=== PATIENT | female | born 1950 | race Caucasian/White ===

== ENCOUNTER → 2016-06-15 | Outpatient (CLI) | payer MEDICARE, OTHER | END | disposition home or self-care (01) | LOC: CFH 13:44 | PROVIDERS: ATTEND Family Medicine | DX: R10.9 Unspecified abdominal pain (principal); Z90.49 Acquired absence of other specified parts of digestive tract; Z90.710 Acquired absence of both cervix and uterus | CPT/HCPCS: 74176 ==

== ENCOUNTER → 2017-06-10 | Outpatient (CLI) | payer MEDICARE ==
[~2017-06-10] MED LIST: GADOBUTROL 7.5 MMOL/7.5 ML PFS ONE
== END | disposition home or self-care (01) ==
LOC: CFH 13:53
PROVIDERS: ATTEND Ophthalmology
DX: H49.22 Sixth [abducent] nerve palsy, left eye (principal); H53.2 Diplopia
CPT/HCPCS: 36415; 70543; 70553; 82565; 84520; A9585

== ENCOUNTER → 2017-06-23 | Outpatient (CLI) | payer MEDICARE ==
[~2017-06-23] MED LIST changes: +ALOE5POW2 PO; +BONE SUPPORT PO; +BOSW1POW PO; +CALC1CAP8 PO; +CHOL10003 PO; +COCONUT PO; +COLL1POW2 PO; -GADOBUTROL 7.5 MMOL/7.5 ML PFS ONE; +GLUC500T11 PO; +HORSETAIL PO; +Instaflex PO; +LUTE10TA2 PO; +TURM1POW PO; +[UNRECOGNIZED DRUG - CODE] PO; +[UNRECOGNIZED DRUG - OTHER] PO
== END | disposition home or self-care (01) ==
LOC: STAR 13:25
PROVIDERS: ATTEND Surgery
DX: Z01.812 Encounter for preprocedural laboratory examination (principal)
CPT/HCPCS: 93005

== ENCOUNTER 2018-12-19 23:24 | Emergency (ER) | payer MEDICARE ==
--- NOTE | 2018-12-19 23:30 | NUR ---
PULSES BACK AT THIS TIME.
--- NOTE | 2018-12-19 23:36 | NUR ---
EPI DRIP STARTED.
--- NOTE | 2018-12-19 23:47 | NUR ---
EPI DRIP BUMPED UP TO 0.16MCG/KG/HR
--- NOTE | 2018-12-19 23:49 | NUR ---
2MG NARCAN AT THIS TIME. Addendum: 12/19/18 at 2350 by ROBERT TOTAL OF 4MG NARCAN ADMIN NOT 2.
--- NOTE | 2018-12-19 23:49 | NUR ---
PT. HAS LARGE MIDLINE INCISION WITH PENELOPE TO CENTAL ABD FOR RECENT SX.
--- NOTE | 2018-12-19 23:51 | NUR ---
CPR RESUMED AT THIS TIME. FAMILY AT BS. DR. HORNE DISCUSSING POC WITH FAMILY.
--- NOTE | 2018-12-19 23:54 | NUR ---
PULSES BACK AT THIS TIME.
[2018-12-19 23:56] LABS: ALANINE AMINOTRANSFERASE 454 U/L (12-78); ALBUMIN 1.8 g/dL (3.4-5.0); ANION GAP 20 mmol/L (5-15); CALCIUM 11.6 mg/dL (8.5-10.1); CHLORIDE 112 mmol/L (98-107); CREATININE 1.21 mg/dL (0.55-1.02)
[2018-12-20] LABS: ALKALINE PHOSPHATASE 118 U/L (45-117); BILIRUBIN,TOTAL 0.4 mg/dL (0.2-1.0); TOTAL PROTEIN 4.8 g/dL (6.4-8.2)
--- NOTE | 2018-12-20 00:02 | NUR ---
LEVO BUMPED UP TO 10MCG/MIN AT THIS TIME
--- NOTE | 2018-12-20 00:09 | NUR ---
FAMILY REMAINS AT BS. DR. HORNE DISCUSSING OPTIONS WITH FAMILY AT THIS TIME.
[2018-12-20 00:16] LABS: INTERNATIONAL NORMALIZED RATIO 1.55 (0.93-1.1)
--- NOTE | 2018-12-20 00:16 | NUR ---
CHEST X-RAY COMPLETED; PULSES LOST, CPR RESUMED.
[2018-12-20 00:17] VITALS: BP 79/14
--- NOTE | 2018-12-20 00:20 | NUR ---
DR. HORNE CALLED TIME OF AT 0020.
[2018-12-20 00:26] LABS: BASOPHILS # (AUTO) 0.09 x10^3/uL (0-0.1); BASOPHILS % (AUTO) 0 % (0-1); EOSINOPHILS # (AUTO) 0.26 x10^3/uL (0-0.4); EOSINOPHILS % (AUTO) 1 % (1-7); LYMPHOCYTES # (AUTO) 12.02 x10^3/uL (1-3.4); LYMPHOCYTES % (AUTO) 54 % (22-44); MD SCAN; MEAN CORPUSCULAR HEMOGLOBIN 29.9 pg (27.0-34.8); MEAN CORPUSCULAR HGB CONC 32.1 g/dL (32.4-35.8); MEAN CORPUSCULAR VOLUME 93.3 fL (80-100); MONOCYTES # (AUTO) 0.57 x10^3/uL (0.2-0.8); MONOCYTES % (AUTO) 3 % (2-9); NEUTROPHILS % (AUTO) 42 % (42-75); RED BLOOD COUNT 4.64 x10^6/uL (3.82-5.3); RED CELL DISTRIBUTION WIDTH 12.7 % (9.6-15.2)
[2018-12-20 00:27] LABS: MEAN PLATELET VOLUME 8.8 fL (7.4-10.4); PLATELET COUNT 57 x10^3/uL (130-400)
--- NOTE | 2018-12-20 00:34 | NUR ---
called to [facility]
--- NOTE | 2018-12-20 00:40 | NUR ---
CALLED [facility] OFFICE AND SPOKE WITH AVANI. SHE STAES SHE WILL BE HEADING OVER NOW.
--- NOTE | 2018-12-20 00:42 | NUR ---
tissue accepted by [facility]. ref #[id number]
--- NOTE | 2018-12-20 00:46 | NUR ---
SEE CODE SHEETS FOR FULL CPR DETAILS.
[2018-12-20] MEDS ORDERED: CALCIUM CHLORIDE 10%, 10ML SYR ONE (01:01)
[2018-12-20] MEDS ORDERED: NALOXONE 1 MG/ML, 2ML ONE (01:01)
[2018-12-20] MEDS ORDERED: DEXTROSE 5%, 250ML ONE (01:01)
[2018-12-20] MEDS ORDERED: EPINEPHRINE 1 MG/ML, 1ML ONE (01:01)
[2018-12-20] MEDS ORDERED: CODE BLUE RESPONSE XX ONE (01:01)
[2018-12-20] MEDS ORDERED: SODIUM BICARB 8.4%, 50ML SYRINGE ONE (01:01)
[2018-12-20] MEDS ORDERED: SODIUM CHLORIDE 0.9%, 250ML ONE (01:01)
[2018-12-20] MEDS ORDERED: NOREPINEPHRINE 1 MG/ML, 4ML ONE (01:01)
[2018-12-20] MEDS ORDERED: EPINEPHRINE SYRINGE 0.1 MG/ML, 10ML ONE (01:01)
--- NOTE | 2018-12-20 01:21 | NUR ---
AVANI FROM [employer] HERE AND DISCUSSING STEPS WITH FAMILY.
== END 2018-12-20 02:12 | disposition expired ==
LOC: EDBD 23:24 → ED 12-20 02:06 → MERGE 12-20 02:06 → ED 12-20 02:12
DX: I46.9 Cardiac arrest, cause unspecified (principal); R74.0 Nonspecific elevation of levels of transaminase and lactic acid dehydrogenase [LDH]; E11.9 Type 2 diabetes mellitus without complications; T88.4XXA Failed or difficult intubation, initial encounter
CPT/HCPCS: 36600; 71045; 80053; 82962; 83880; 84484; 85025; 85610; 85730; 92950; 93005; 99291; J0171; J2310; J7050; J7060